=== PATIENT | female | born 1975 | race Caucasian/White ===

== ENCOUNTER 2016-07-08 22:29 | Emergency (ER) | payer BC ==
[2016-07-08 22:39] VITALS: BP 122/86
--- NOTE | 2016-07-08 22:48 | EDM.PDOC ---
[id number]: RAPID HEARTRATE Time Seen by Provider: 07/08/16 22:38 Source of Information: Reports: Patient History Limitations: Reports: No Limitations - History of Present Illness INITIAL COMMENTS - FREE TEXT/NARRATIVE: 40 years old w f came to the ed due to intermittent palpitations. Pt underwent labtests, echocardiography in the past which were all normal. 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 Pt is now in her usual state of health. Pt smokes daily. Onset: Unknown/Unsure Onset Date: 06/23/16 Onset Time: 09:00 Duration: Day(s):, Week(s):, Intermittent Location: Reports: Chest Quality: Reports: Other (palpitations) Severity: Mild Improves with: Reports: None Worsens with: Reports: None Associated Symptoms: Reports: No Other Symptoms - Related Data Allergies Allergy/AdvReac Type Severity Reaction Status Date / Time No Known Allergies Allergy Verified 07/08/16 22:36 Home Meds: Home Meds NK [No Known Home Meds] 07/08/16 [History] Past Medical History Cardiovascular History: Reports: Other (See Below) Other Cardiovascular History: rapid HR about a month ago Social & Family History - Tobacco Use Smoking Status *Q: Current Every Day Smoker Years of Tobacco use: 15 Packs/Tins Daily: 1 - Caffeine Use Caffeine Use: Reports: Coffee, Soda - Recreational Drug Use Recreational Drug Use: No ED ROS GENERAL - Review of Systems Review Of Systems: See Below Constitutional: Reports: No Symptoms HEENT: Reports: No Symptoms Respiratory: Reports: No Symptoms Cardiovascular: Reports: No Symptoms Endocrine: Reports: No Symptoms GI/Abdominal: Reports: No Symptoms : Reports: No Symptoms Musculoskeletal: Reports: No Symptoms Skin: Reports: No Symptoms Neurological: Reports: No Symptoms Psychiatric: Reports: No Symptoms Hematologic/Lymphatic: Reports: No Symptoms Immunologic: Reports: No Symptoms ED EXAM, GENERAL - Physical Exam Exam: See Below Exam Limited By: No Limitations General Appearance: Alert, WD/WN, No Apparent Distress Eye Exam: Bilateral Eye: Normal Inspection Ears: Normal External Exam Ear Exam: Bilateral Ear: Auricle Normal Nose: Normal Inspection, Normal Mucosa, No Blood Throat/Mouth: Normal Inspection, Normal Lips Head: Atraumatic, Normocephalic Neck: Normal Inspection, Supple, Non-Tender, Full Range of Motion Respiratory/Chest: No Respiratory Distress, Lungs Clear, Normal Breath Sounds Cardiovascular: Normal Peripheral Pulses, Regular Rate, Rhythm, No Edema, No Gallop, No JVD, No Murmur, No Rub Peripheral Pulses: 1+: Femoral (L), Femoral (R) GI/Abdominal: Normal Bowel Sounds, Soft, Non-Tender, No Organomegaly (Female) Exam: Deferred Rectal (Female) Exam: Deferred Back Exam: Normal Inspection Extremities: Normal Inspection, Normal Range of Motion, Non-Tender Neurological: Alert, Oriented, CN II-XII Intact, Normal Cognition, Normal Gait, Normal Reflexes Psychiatric: Normal Affect, Normal Mood Skin Exam: Warm, Dry, Intact, Normal Color, No Rash Lymphatic: No Adenopathy Course - Vital Signs Text/Narrative:: 40 years old w f came to the ed due to intermittent palpitations. Pt underwent labtests, echocardiography in the past which were all normal. 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 Pt is now in her usual state of health. Pt smokes daily.\ PE: Nl physical Impression: intermittent palpitations. Plan: D/C with instructions Last Recorded V/S: Last Vital Signs Temp 36.8 C 07/08/16 22:38 Pulse 92 07/08/16 22:38 Resp 18 07/08/16 22:38 BP 122/86 07/08/16 22:38 Pulse Ox 100 07/08/16 22:38 Departure - Departure Time of Disposition: 22:48 Disposition: Home, Self-Care 01 Condition: good Clinical Impression: Intermittent palpitations Referrals: PCP,None [Primary Care Provider] - Forms: ED Department Discharge Additional Instructions: Please quit Tobacco use, please see your PMD for Holter Monitor placement this Monday. Please came back to the ed if your symptoms get worse acutely
== END 2016-07-08 22:55 | disposition home or self-care (01) ==
LOC: FB.ED 22:29
DX: R00.2 Palpitations (principal); F17.210 Nicotine dependence, cigarettes, uncomplicated
CPT/HCPCS: 99284